=== PATIENT | male | born 1970 | race Caucasian/White ===

== ENCOUNTER 2019-12-31 09:59 | Outpatient (REF) | payer MEDICAID, SELFPAY ==
[2019-12-31 10:46] LABS: Abs Immature Grans 0.02 k/cumm (0.0-0.09); Absolute Basophil Count 0.06 k/cumm (0.0-0.2); Absolute Eosinophil Count 0.62 k/cumm (0.0-0.7); Absolute Monocyte Count 0.98 k/cumm (0.11-0.7); Basophils % 0.6; Eosinophils % 6.5; HCT 26.1 % (40.0-50.0); HGB 7.9 g/dL (13.5-17.5); Immature Grans % 0.2 %; Lymphocytes % 12.5; Mean Corp. HGB Concentration 30.3 g/dL (32.0-36.0); Mean Corpuscular Hemoglobin 29.7 pg (27.0-33.0); Mean Corpuscular Volume 98.1 fL (80-95); Mean Platelet Volume 9.1 fL (8.0-11.0); Monocytes % 10.2; Platelet Count 360 x1000/uL (130-400); RBC 2.66 m/cumm (4.50-6.00); RBC Distribution Width 14.8 % (11.8-14.1); White Blood Cell Count 9.58 k/cumm (4.4-10.8)
[2019-12-31 10:57] LABS: ALT 14 U/L (16-63); AST 19 U/L (15-37); Albumin 2.9 g/dL (3.4-5.0); Alkaline Phosphatase 82 U/L (46-116); Anion Gap 13.3 mmol/L (3-11); BUN 19 mg/dL (7-18); Bilirubin, Total 0.5 mg/dL (0.2-1.0); CO2 23.7 mmol/L (21.0-32.0); CREATININE 1.01 mg/dL (0.70-1.30); Calcium 8.1 mg/dL (8.5-10.1); Chloride 103 mmol/L (98-107); Glucose 98 mg/dL (74-106); Magnesium 1.2 mg/dL (1.8-2.4); Potassium 3.8 mmol/L (3.5-5.1); Sodium 140 mmol/L (136-145)
[2019-12-31 10:58] LABS: Diff Comment Diff Reviewed; Hypochromasia 2+
[2019-12-31 10:59] LABS: Poikilocytes 1+
== END 2019-12-31 10:19 ==
LOC: LBO 09:59
PROVIDERS: Visit Provider Nurse Practitioner Adult Health
DX: E78.5 Hyperlipidemia, unspecified (principal); E88.81 Metabolic syndrome and other insulin resistance; N17.9 Acute kidney failure, unspecified
CPT/HCPCS: 36415; 80053; 83735; 85025

== ENCOUNTER 2020-01-07 10:43 | Outpatient (CLI) | payer MEDICAID, SELFPAY ==
[2020-01-07 11:12] LABS: Abs Immature Grans 0.01 k/cumm (0.0-0.09); Absolute Basophil Count 0.05 k/cumm (0.0-0.2); Absolute Eosinophil Count 0.63 k/cumm (0.0-0.7); Absolute Lymphocyte Count 1.38 k/cumm (1.2-3.4); Absolute Monocyte Count 0.72 k/cumm (0.11-0.7); Absolute Neutrophil Count 5.61 k/cumm (1.2-6.7); Basophils % 0.6; Eosinophils % 7.5; HCT 28.4 % (40.0-50.0); HGB 8.8 g/dL (13.5-17.5); Immature Grans % 0.1 %; Lymphocytes % 16.4; Mean Corpuscular Hemoglobin 29.8 pg (27.0-33.0); Mean Corpuscular Volume 96.3 fL (80-95); Mean Platelet Volume 9.5 fL (8.0-11.0); Monocytes % 8.6; Neutrophils % 66.8; Platelet Count 362 x1000/uL (130-400); RBC 2.95 m/cumm (4.50-6.00); RBC Distribution Width 13.9 % (11.8-14.1)
[2020-01-07 11:44] LABS: Anion Gap 13.1 mmol/L (3-11); BUN 22 mg/dL (7-18); CO2 24.9 mmol/L (21.0-32.0); CREATININE 1.19 mg/dL (0.70-1.30); Calcium 9.2 mg/dL (8.5-10.1); Chloride 100 mmol/L (98-107); Glucose 114 mg/dL (74-106); Sodium 138 mmol/L (136-145)
== END 2020-01-07 11:03 ==
PROVIDERS: Visit Provider Nurse Practitioner Adult Health
DX: N17.9 Acute kidney failure, unspecified (principal); E78.5 Hyperlipidemia, unspecified; E88.81 Metabolic syndrome and other insulin resistance; B95.61 Methicillin susceptible Staphylococcus aureus infection as the cause of diseases classified elsewhere; J15.0 Pneumonia due to Klebsiella pneumoniae; Z86.79 Personal history of other diseases of the circulatory system
CPT/HCPCS: 36415; 80048; 85025

== ENCOUNTER 2024-12-05 14:49 | Outpatient (CLI) | payer MEDICAID, SELFPAY ==
--- NOTE | 2024-12-05 14:00 | DI.RAD_ITS ---
Exam(s) XR FOOT LT COMPLETE EXAM: XR FOOT LT COMPLETE CLINICAL HISTORY: update on status of wound/osteomyelitis screening M86.9 S98.132A L97.504. TECHNIQUE: 2D digital imaging was performed. Three views. COMPARISON: No exams were available for comparison FINDINGS: Exam is limited by overlying the bandages. BONES: No acute fracture is present. No bony destructive lesion is seen. There is been previous amp utation of the majority of the great toe. The 2nd through 5th toes have been amputated. There has b een amputation of the 3rd metatarsal head, amputation at the mid 4th metatarsal and amputation at the base of the 5th metatarsal. JOINTS: No dislocation present. SOFT TISSUE: Soft tissue swelling. Soft tissue ulcerations are visible at the lateral aspect of the foot at the level of the metatarsals. IMPRESSION: Amputation of the toes and metatarsals. No plain film evidence of osteomyelitis. DATA REPOSITORY: RADIATION DOSE DELIVERED:
== END 2024-12-05 15:09 ==
LOC: DI 14:50
PROVIDERS: PCP Family Medicine; Visit Provider Podiatrist
DX: S98.132D Complete traumatic amputation of one left lesser toe, subsequent encounter (principal); L97.522 Non-pressure chronic ulcer of other part of left foot with fat layer exposed; X58.XXXD Exposure to other specified factors, subsequent encounter; Z98.890 Other specified postprocedural states
CPT/HCPCS: 73630

== ENCOUNTER 2025-03-26 15:18 | Outpatient (CLI) | payer MEDICAID, SELFPAY ==
[2025-03-26 15:17] LABS: Abs Immature Grans 0.03 10^3/uL (0.0-0.06); Absolute Basophil Count 0.07 10^3/uL (0.0-0.2); Absolute Eosinophil Count 0.63 10^3/uL (0.0-0.7); Absolute Lymphocyte Count 1.76 10^3/uL (1.2-3.4); Absolute Monocyte Count 0.98 10^3/uL (0.1-0.8); Absolute Neutrophil Count 5.54 10^3/uL (1.2-6.7); Basophils % 0.8 %; HGB 10.8 g/dL (13.5-17.5); Immature Grans % 0.3 %; Lymphocytes % 19.5 %; MCH 29.2 pg (27.0-33.0); MCHC 31.8 % (32.0-36.0); MCV 92 fL (80-95); MPV 8.8 fL (8.0-11.0); Monocytes % 10.9 %; Neutrophils % 61.5 %; Platelet Count 220 10^3/uL (130-400); RDW 14.2 % (11.8-14.1); RDW-SD 47.7 fL; WBC 9.01 10^3/uL (4.4-10.8)
[2025-03-26 15:22] LABS: ESR 35 mm/hr (0-20)
[2025-03-26 16:05] LABS: C-Reactive Protein 1.94 mg/dL (<or=0.5)
== END 2025-03-26 15:19 | disposition home or self-care (01) ==
LOC: LBO 15:19
PROVIDERS: PCP Family Medicine; Visit Provider Podiatrist
DX: L03.90 Cellulitis, unspecified (principal)
CPT/HCPCS: 36415; 85652; 85025; 86140

== ENCOUNTER 2025-06-26 13:51 | Outpatient (CLI) | payer MEDICAID, SELFPAY ==
--- NOTE | 2025-06-26 11:50 | DI.RAD_ITS ---
Exam(s) XR CHEST 2V PA LATERAL EXAM: XR CHEST 2V PA LATERAL CLINICAL HISTORY: pulmonary infiltrates R91.8 ABNL FINDINGS TECHNIQUE: 2D digital imaging was performed. Two views. COMPARISON: CR XR CHEST 2VW (D) from 08/12/[address] CHEST WO CONTRAST from 09/03/2024 CR XR CHEST 1 VW from 06/02/2025 FINDINGS: HEART: Normal size. Coronary artery stent visible. Aorta: Not dilated. PULMONARY VASCULATURE: Normal. MEDIASTINUM: Unremarkable. LUNGS: Minimal linear densities in the left lower lobe. Significant clearing of bilateral infiltrates. No new infiltrates. PLEURAL SPACE: No pleural effusion or pneumothorax. BONE:Unremarkable for age. SOFT TISSUES: Unremarkable. IMPRESSION: Clearing of bilateral basilar infiltrates. Residual scarring/atelectasis at the left lung base. DATA REPOSITORY: RADIATION DOSE DELIVERED:
== END 2025-06-26 14:11 ==
PROVIDERS: PCP Family Medicine; Visit Provider Internal Medicine Pulmonary Disease
DX: R91.8 Other nonspecific abnormal finding of lung field (principal)
CPT/HCPCS: 71046